=== PATIENT | female | born 1985 | race Two or more races ===

== ENCOUNTER 2020-09-23 17:46 | Emergency (ER) | payer BC, MEDICAID ==
[~2020-09-23] VITALS: Ht 132.1 cm; Wt 77.1 kg
[~2020-09-23 17:46] MED LIST: ALBUTEROL SULF8.5 GM INH; ALBUTEROL2.5 MG/3 M HHN; ALPRAZOLAM0.25 MG PO; IBUPROFEN600 MG PO; NORCO 5-325 TA1 EAC1 ORAL; TRAMADOL HCL50 MG ORAL
--- NOTE | 2020-09-23 17:56 | NUR ---
ED Nurse Note: pt presents to ED c/o fevers/chills, cough and N/V/D. pt states that she was exposed to COVID and that she had a fever of over 100 at home. she has not been tested for COVID, low grade fever noted on triage
[2020-09-23 17:59] VITALS: BP 136/78
--- NOTE | 2020-09-23 18:00 | NUR ---
ED Nurse Note: xray is at pt bedside
--- NOTE | 2020-09-23 18:30 | Emergency Room Report ---
History of Present Illness General Chief Complaint: Flu Like Symptoms Present Illness HPI 34-year-old female with history of asthma here complaining of 2 days of cough, congestion, shortness of breath, few bouts of nonbloody diarrhea. Also complains of generalized body aches and chills. Reports that symptoms started after she was exposed to her boyfriend who is positive for Covid. Denies chest pain and shortness of breath at this time. Has been using inhaler with minimal relief. Denies urinary symptoms. Vital signs are within normal limits and patient is in no respiratory distress at this time. Denies . Allergies: Coded Allergies: TRAMADOL (Unverified Allergy, Unknown, 06/10/15) COVID-19 Screening Contact w/high risk pt: Yes Experienced COVID-19 symptoms?: Yes COVID-19 Testing performed R D ENGINEER: No Patient History Past Medical History: see triage record Past Surgical History: none Pertinent Family History: none Last Menstrual Period: now Now: No Reviewed Nursing Documentation: PMH: Agreed; PSxH: Agreed Nursing Documentation-PMH Hx Asthma: Yes Review of Systems All Other Systems: negative except mentioned in HPI Physical Exam Vital Signs Date Time Temp Pulse Resp B/P (MAP) Pulse Ox O2 Delivery O2 Flow Rate FiO2 09/23/20 17:55 99.1 87 24 136/78 (97) 96 Room Air Sp02 EP Interpretation: reviewed, normal General Appearance: no apparent distress, alert, GCS 15, non-toxic Head: normocephalic, atraumatic Eyes: bilateral eye normal inspection, bilateral eye PERRL ENT: hearing grossly normal, no angioedema, normal voice Neck: full range of motion, supple/symm/no masses Respiratory: no respiratory distress, no retraction, no accessory muscle use, speaking full sentences Cardiovascular #1: normal inspection, regular rate, rhythm, no edema Gastrointestinal: non-distended Musculoskeletal: back normal, gait/station normal Neurologic: alert, motor strength/tone normal, oriented x3, sensory intact, responsive, speech normal Psychiatric: judgement/insight normal, memory normal, mood/affect normal, no suicidal/homicidal ideation Skin: no rash, normal color Lymphatic: no adenopathy Medical Decision Making PA Attestation All diagnoses and treatment plans were reviewed and discussed with my supervising physician Dr. Venegas Diagnostic Impression: Primary Impression: Upper respiratory infection Additional Impressions: Diarrhea Suspected 2019 novel coronavirus infection ER Course 34-year-old female with history of asthma here complaining of 2 days of cough, congestion, shortness of breath, few bouts of nonbloody diarrhea. Also comp lains of generalized body aches and chills. Reports that symptoms started after she was exposed to her boyfriend who is positive for Covid. Denies chest pain and shortness of breath at this time. Has been using inhaler with minimal relief. Denies urinary symptoms. Vital signs are within normal limits and patient is in no respiratory distress at this time. Denies pre gnancy. Ddx considered but are not limited to: Covid pneumonia, strep pharyngitis, URI, tonsillitis, peritonsillar abscess, influneza Vital signs: are WNL, pt. is afebrile H&PE are most consistent with: Suspected Covid, ORDERS: Chest x-ray, prednisone, azithromycin, Loperamide, Phenergan, albuterol ED INTERVENTIONS: None required at this time. Patient requested medication for diarrhea specifically. Advised patient to stay home, quarantine for 2 weeks, if worsening symptoms return to the emergency room DISCHARGE: At this time pt. is stable for d/c to home. Will provide printed patient care instructions, and any necessary prescriptions. Care plan and follow up instructions have been discussed with the patient prior to discharge. Chest X-Ray Diagnostic Results Chest X-Ray Diagnostic Results : Chest X-Ray Ordered: Yes # of Views/Limited/Complete: 1 View Indication: Shortness of Breath EP Interpretation: Yes ALEENA Xray: Interpretation reviewed, by supervising MD, and agrees with nacho pineda. Interpretation: no consolidation, no effusion, no pneumothorax Impression: No acute disease Electronically Signed by: Elen Boyce PA-C Last Vital Signs Date Time Temp Pulse Resp B/P (MAP) Pulse Ox O2 Delivery O2 Flow Rate FiO2 09/23/20 17:59 99.1 85 24 136/78 96 Room Air Disposition: HOME, SELF-CARE Condition: Stable Scripts Loperamide HCl (Loperamide) 2 Mg Capsule 2 MG ORAL TID, #15 CAP 0 Refills Prov: Elen Hussein 09/23/20 Albuterol Sulfate* (ALBUTEROL SULFATE HHN*) 2.5 Mg/3 Ml Vial.neb 3 ML INH THREE TIMES A DAY, #30 EA 0 Refills Prov: Elen Hussein 09/23/20 Promethazine Hcl (PROMETHAZINE HCL*) 6.25 Mg/5 Ml Syrup 5 ML ORAL Q8H, #120 ML 0 Refills Prov: Elen Hussein 09/23/20 Prednisone* (PREDNISONE*) 20 Mg Tablet 40 MG ORAL DAILY for 5 Days, #10 TAB Prov: Elen Hussein 09/23/20 Azithromycin* (ZITHROMAX*) 250 Mg Tablet 250 MG ORAL DAILY, #6 TAB 0 Refills Take two tables once daily for 1 day, then one tablet once daily for 4 days. Prov: Elen Hussein 09/23/20 Patient Instructions: Diarrhea, Adult, [id number], Upper Respiratory Infection, Adult, [id number] Additional Instructions: Take medication as directed, quarantine for 14 days due to Covid exposure and presenting with Covid-like symptoms, if worsening symptoms return to the emergency room Elen Hussein Sep 23, 2020 18:30
[2020-09-23] MEDS ORDERED: IMODIUM2 MG ORAL (18:32)
[2020-09-23] MEDS ORDERED: PREDNISONE20 MG ORAL (18:32)
[2020-09-23] MEDS ORDERED: ALBUTEROL2.5 MG/3 M INH (18:32)
[2020-09-23] MEDS ORDERED: ZITHROMAX250 MG ORAL (18:32)
[2020-09-23] MEDS ORDERED: PROMETHAZI6.25 MG/1 ORAL (18:32)
[2020-09-23 18:40] VITALS: BP 136/78
--- NOTE | 2020-09-23 18:40 | NUR ---
ER DISCHARGE NOTE: Patient is cleared to be discharged per ERMD, pt is aox4, on room air, with stable vital signs. pt was given dc and prescription instructions, pt was able to verbalize understanding, pt id band removed without complications. pt is able to ambulate with steady gait. pt took all belongings.DOA:
--- NOTE | 2020-09-24 16:18 | Diagnostic Imaging Report ---
Indication: Shortness of breath Technique: One view of the chest Comparison: none Findings: Lungs and pleural spaces are clear. Heart size is normal. Impression: No acute process
== END 2020-09-23 18:45 | disposition home or self-care (01) ==
LOC: EMR 18:40
DX: J06.9 Acute upper respiratory infection, unspecified (principal); R19.7 Diarrhea, unspecified; Z20.828 Contact with and (suspected) exposure to other viral communicable diseases; R05 Cough; R06.02 Shortness of breath; J45.909 Unspecified asthma, uncomplicated
CPT/HCPCS: 71045; 99283